=== PATIENT | male | born 1940 | race Caucasian/White ===

== ENCOUNTER → 2017-07-27 | Outpatient (CLI) | payer MEDICARE, OTHER ==
[2014-10-02 16:00] VITALS: BMI 30.0
[~2017-07-27] MED LIST: ACE325 PO; ACET-2031 PO; APIX2.5T PO; APIX5TAB PO; ASP325 PO; ASPI-715 PO; ASPI-757 PO; BISA-236 RC; CIP500 PO; CLO75 PO; DIGO0.25 PO; DILT180C4 PO; DILT360T PO; DOC100 PO; DOCU-416 PO; DOXY150T6 PO; FAMO20TA9 PO; FIN5 PO; GUAI600T84 PO; LAN30PT PO; LANS15CA38 PO; LEV500 PO; LOR5 PO; LOR5/325 PO; MOM PO; PHENA200 PO; RIVA20TA PO; TAM4 PO; TAMS0.4C70 PO; [UNRECOGNIZED DRUG - CODE] PO; avadart PO
== END ==
LOC: LAB 06:06
DX: R97.20 Elevated prostate specific antigen [PSA] (principal)
CPT/HCPCS: 36415; 84153

== ENCOUNTER → 2018-06-27 | Outpatient (CLI) | payer MEDICARE, OTHER ==
[2018-06-10 13:01] VITALS: BMI 28.1
[~2018-06-27] MED LIST changes: +CIME200T87 PO; +DIGO250T76 PO
[2018-06-27 10:09] LABS: PLATELET COUNT, AUTOMATED 244 K/uL (150-450)
== END ==
LOC: LAB 09:55
PROVIDERS: ATTEND Internal Medicine
DX: J43.8 Other emphysema (principal); I48.2 Chronic atrial fibrillation; I26.99 Other pulmonary embolism without acute cor pulmonale; N40.0 Benign prostatic hyperplasia without lower urinary tract symptoms
CPT/HCPCS: 36415; 81001; 82040; 82247; 82310; 82374; 82435; 82465; 82565; 82947; 83036; 83718; 84075; 84132; 84153; 84155; 84295; 84443; 84450; 84460; 84478; 84520; 85025

== ENCOUNTER → 2018-07-06 | Outpatient (CLI) | payer MEDICARE, OTHER ==
[2018-06-10 13:01] VITALS: BMI 28.1
== END ==
LOC: RESP 01:08
PROVIDERS: ATTEND Internal Medicine
DX: J98.4 Other disorders of lung (principal)
CPT/HCPCS: 94060; 94726; 94729

== ENCOUNTER → 2018-07-19 | Outpatient (CLI) | payer MEDICARE, OTHER ==
[2018-06-10 13:01] VITALS: BMI 28.1
== END ==
LOC: US 00:21
PROVIDERS: ATTEND Internal Medicine
DX: I51.7 Cardiomegaly (principal); I48.2 Chronic atrial fibrillation; I35.1 Nonrheumatic aortic (valve) insufficiency; I34.0 Nonrheumatic mitral (valve) insufficiency
CPT/HCPCS: 93306